=== PATIENT | male | born 1955 | race Caucasian/White ===

== ENCOUNTER 2023-01-29 10:24 | Emergency (ER) | payer MEDICARE, OTHER ==
[2023-01-29] MEDS ORDERED: ASCO500C18 GT (22:47)
[2023-01-29] MEDS ORDERED: POTA-88 GT (22:47)
[2023-01-29] MEDS ORDERED: LEVE500T83 GT (22:47)
[2023-01-29] MEDS ORDERED: ACET-2154 GT (22:47)
[2023-01-29] MEDS ORDERED: QUET25TA GT (22:47)
[2023-01-29] MEDS ORDERED: MIDO10TA GT (22:47)
[2023-01-29] MEDS ORDERED: MONT10TA33 GT (22:47)
[2023-01-29] MEDS ORDERED: VENL37.510 GT (22:47)
[2023-01-29] MEDS ORDERED: VERA100C4 GT (22:47)
[2023-01-29] MEDS ORDERED: LURA60TA3 GT (22:47)
[2023-01-29] MEDS ORDERED: FLUT16SP BNOSTRILS (22:47)
[2023-01-29] MEDS ORDERED: MULT-1045 GT (22:47)
[2023-01-29] MEDS ORDERED: NITR0.4T48 SL (22:47)
[2023-01-29] MEDS ORDERED: ALPR0.5T8 GT (22:47)
== END 2023-01-29 10:47 | disposition left against medical advice (07) ==
LOC: ER 10:28
DX: Z53.21 Procedure and treatment not carried out due to patient leaving prior to being seen by health care provider (principal)

== ENCOUNTER 2023-01-29 16:09 | Inpatient (IN) | payer MEDICARE, OTHER ==
[~2023-01-29] VITALS: Ht 188 cm; Wt 74.8 kg
[2023-01-29 16:47] LABS: BASOPHILS # (AUTO) 0.1 K/UL (0.0-0.2); DIFFERENTIAL COMMENT 0; EOSINOPHILS # (AUTO) 0.1 K/uL (0.0-0.7); EOSINOPHILS % (AUTO) 2.2 % (0.0-7.0); HEMATOCRIT 42.3 % (36.7-47.1); HEMOGLOBIN 14.1 g/dL (12.5-16.3); LYMPHOCYTES # (AUTO) 2.8 K/uL (0.8-4.8); LYMPHOCYTES % (AUTO) 43.9 % (20.5-51.5); MEAN CORPUSCULAR HEMOGLOBIN 29.3 uug (23.8-33.4); MEAN CORPUSCULAR HGB CONC 33 g/dL (32.5-36.3); MEAN CORPUSCULAR VOLUME 87.8 fL (73.0-96.2); MONOCYTES # (AUTO) 0.5 K/uL (0.1-1.30); MONOCYTES % (AUTO) 8.4 % (0.0-11.0); NEUTROPHILS # (AUTO) 2.8 K/uL (1.8-8.9); NEUTROPHILS % (AUTO) 43.5 % (38.5-71.5); PLATELET COUNT (AUTO) 181 K/uL (152-348); RED BLOOD CELL COUNT(AUTO) 4.81 MIL/uL (4.06-5.63); RED CELL DISTRIBUTION WIDTH 14.4 % (12.1-16.2); WHITE BLOOD COUNT (AUTO) 6.5 K/uL (3.6-10.2)
[2023-01-29 17:00] LABS: CALCIUM 9.8 mg/dL (8.5-10.1); CARBON DIOXIDE 26 mmol/L (21-32); CHLORIDE 99 mmol/L (98-107); CREATININE 1.3 mg/dL (0.6-1.3); GLUCOSE 88 mg/dL (74-106); POTASSIUM 4.3 mmol/L (3.5-5.1); SODIUM SERUM 130 mmol/L (136-145); UREA NITROGEN, BLOOD 19 mg/dL (7-18)
[2023-01-29 17:02] LABS: AMMONIA 12 umol/L (11-32)
[2023-01-29 17:05] LABS: ETHANOL < 3 MG/DL (0-10)
[2023-01-29 17:08] LABS: ACETAMINOPHEN < 2.0 ug/mL (10-30); ALANINE AMINOTRANSFERASE 29 U/L (16-63); ALBUMIN 3.6 g/dL (3.4-5.0); ALKALINE PHOSPHATASE 130 U/L (50-136); ASPARTATE AMINOTRANSFERASE 20 U/L (15-37); BILIRUBIN,DIRECT 0.1 mg/dL (0.0-0.2); BILIRUBIN,TOTAL 0.5 mg/dL (0.2-1.0); TOTAL PROTEIN, SERUM 6.9 g/dL (6.4-8.2)
[2023-01-29 17:13] LABS: THYROID STIMULATING HORMONE 2.372 mIU/mL (0.358-3.740)
[2023-01-29 21:45] LABS: *BILIRUBIN,URIN NEGATIVE (NEGATIVE); *BLOOD, URINE NEGATIVE (NEGATIVE); *CLARITY,URINE CLEAR (CLEAR); *COLOR,URINE YELLOW (YELLOW); *KETONES,URINE NEGATIVE (NEGATIVE); *PROTEIN,URINE NEGATIVE (NEGATIVE); *UROBILINOGEN,URINE 0.2 E.U./dl (NORMAL); LEUKOCYTE ESTERASE ,URINE NEGATIVE (NEGATIVE); NITRITE, URINE NEGATIVE (NEGATIVE); UGLUCOSE NEGATIVE (NEGATIVE)
[2023-01-29 21:56] LABS: *AMPHETAMINE, URINE NEGATIVE (NEGATIVE); *BARBITURATE, URINE NEGATIVE (NEGATIVE); *BENZODIAZEPINE, URINE NEGATIVE (NEGATIVE); *CANNABINOID, URINE NEGATIVE (NEGATIVE); *COCCAINE, URINE NEGATIVE (NEGATIVE); *OPIATE, URINE NEGATIVE (NEGATIVE); *PHENCYCLIDINE SCREEN,URINE NEGATIVE (NEGATIVE); FENTANYL, URINE NEGATIVE (NEGATIVE)
[2023-01-29] MEDS ORDERED: VERA100C4 GT (22:47)
[2023-01-29] MEDS ORDERED: POTA-88 GT (22:47)
[2023-01-29] MEDS ORDERED: NITR0.4T48 SL (22:47)
[2023-01-29] MEDS ORDERED: VENL37.510 GT (22:47)
[2023-01-29] MEDS ORDERED: ACET-2154 GT (22:47)
[2023-01-29] MEDS ORDERED: ASCO500C18 GT (22:47)
[2023-01-29] MEDS ORDERED: MIDO10TA GT (22:47)
[2023-01-29] MEDS ORDERED: QUET25TA GT (22:47)
[2023-01-29] MEDS ORDERED: MULT-1045 GT (22:47)
[2023-01-29] MEDS ORDERED: ALPR0.5T8 GT (22:47)
[2023-01-29] MEDS ORDERED: MONT10TA33 GT (22:47)
[2023-01-29] MEDS ORDERED: LEVE500T83 GT (22:47)
[2023-01-29] MEDS ORDERED: FLUT16SP BNOSTRILS (22:47)
[2023-01-29] MEDS ORDERED: LURA60TA3 GT (22:47)
[2023-01-29] MEDS ORDERED: MAG HYDROX/AL HYDROX/SIMETH 30 ML LIQUID UDC PO PRN (23:15)
[2023-01-29] MEDS ORDERED: ACETAMINOPHEN 325 MG TABLET PO PRN (23:15)
[2023-01-29] MEDS ORDERED: TEMAZEPAM 7.5 MG CAPSULE PO PRN (23:15)
[2023-01-29] MEDS ORDERED: MAGNESIUM HYDROXIDE 30 ML LIQUID UDC PO PRN (23:15)
[2023-01-29 23:20] VITALS: BP 146/76; TEMP 98.3; O2SAT 98
[2023-01-29] MEDS: LORAZEPAM 0.5 MG TABLET PO PRN (23:56)
[2023-01-30 08:00] VITALS: BP 129/85; TEMP 97.8
[2023-01-30] MEDS ORDERED: NITROGLYCERIN 0.4 MG/TAB BOTTLE SL PRN (11:30)
[2023-01-30] MEDS ORDERED: Medication Not On Formulary EA (Midodrine Hcl 10 MG) GT SCH (11:30)
[2023-01-30] MEDS ORDERED: levETIRAcetam 500 MG TABLET GT SCH (11:41)
[2023-01-30] MEDS ORDERED: MULTIVITAMINS,THERAPEUTIC TABLET GT SCH (11:43)
[2023-01-30] MEDS ORDERED: MIDODRINE HCL 5 MG TABLET PO PRN (13:00)
[2023-01-30] MEDS ORDERED: VERAPAMIL HCL 80 MG GT SCH (13:00)
[2023-01-30] MEDS ORDERED: MIDODRINE HCL 10 MG TABLET PO PRN (13:15)
[2023-01-30 16:00] VITALS: BP 117/92; TEMP 98
[2023-01-30] MEDS: POTASSIUM CHLORIDE 20 MEQ POWDER PACKET PO SCH (16:23)
[2023-01-30] MEDS: levETIRAcetam 500 MG TABLET PO SCH (16:23)
[2023-01-30] MEDS: VERAPAMIL 80 MG TABLET PO SCH (16:24)
[2023-01-30] MEDS ORDERED: POTASSIUM CHLORIDE GT SCH (17:00)
[2023-01-30] MEDS ORDERED: Medication Not On Formulary EA (Levetiracetam 500 MG) GT SCH (17:00)
[2023-01-30] MEDS: risperiDONE 1 MG TABLET PO SCH ×3 (18:00→20:23)
[2023-01-30] MEDS: LORAZEPAM 0.5 MG TABLET PO PRN (20:23)
[2023-01-31 00:07] VITALS: BP 119/52; TEMP 98.3; O2SAT 96
[2023-01-31 08:00] VITALS: BP 102/90; TEMP 98.1
[2023-01-31] MEDS ORDERED: MIDODRINE HCL 5 MG TABLET PO PRN (08:30)
[2023-01-31 08:35] LABS: ALBUMIN 3.2 g/dL (3.4-5.0); BILIRUBIN,TOTAL 0.6 mg/dL (0.2-1.0); CALCIUM 9.7 mg/dL (8.5-10.1); CREATININE 1.2 mg/dL (0.6-1.3); POTASSIUM 3.8 mmol/L (3.5-5.1); TOTAL PROTEIN, SERUM 6.2 g/dL (6.4-8.2)
[2023-01-31] MEDS: VERAPAMIL 80 MG TABLET PO SCH ×3 (09:00→17:12)
[2023-01-31] MEDS ORDERED: Medication Not On Formulary EA (Multivitamin (Multi-Vitamin Daily) 1 TAB) GT SCH (09:00)
[2023-01-31] MEDS: POTASSIUM CHLORIDE 20 MEQ POWDER PACKET PO SCH (09:02)
[2023-01-31] MEDS: ASCORBIC ACID 500 MG TABLET PO SCH (09:03)
[2023-01-31] MEDS: MULTIVITAMINS,THERAPEUTIC TABLET PO SCH (09:03)
[2023-01-31] MEDS: levETIRAcetam 500 MG TABLET PO SCH ×2 (09:03→17:13)
[2023-01-31] MEDS: risperiDONE 1 MG TABLET PO SCH ×3 (09:03→20:38)
[2023-01-31] MEDS: FLUTICASONE PROP NASAL SPRAY 16 GM BOTTLE NS SCH (09:04)
[2023-01-31 16:00] VITALS: BP 114/86; TEMP 97.4
[2023-01-31] MEDS: POTASSIUM CHLORIDE 10 MEQ TAB.PRT.SR PO SCH (17:13)
[2023-01-31] MEDS: MONTELUKAST SODIUM 10 MG TABLET PO SCH (17:14)
[2023-01-31] MEDS: ATORVASTATIN 20 MG TABLET PO SCH (20:38)
[2023-01-31 21:33] VITALS: BP 114/71; TEMP 98.2; O2SAT 98
[2023-02-01 08:00] VITALS: BP 125/86; TEMP 97.6
[2023-02-01] MEDS: ASCORBIC ACID 500 MG TABLET PO SCH (08:48)
[2023-02-01] MEDS: VERAPAMIL 80 MG TABLET PO SCH ×3 (08:48→17:31)
[2023-02-01] MEDS: POTASSIUM CHLORIDE 10 MEQ TAB.PRT.SR PO SCH ×2 (08:48→17:28)
[2023-02-01] MEDS: risperiDONE 1 MG TABLET PO SCH (08:49)
[2023-02-01] MEDS: MULTIVITAMINS,THERAPEUTIC TABLET PO SCH (08:49)
[2023-02-01] MEDS: levETIRAcetam 500 MG TABLET PO SCH ×2 (08:49→17:28)
[2023-02-01] MEDS: ASPIRIN EC 81 MG TABLET.DR PO SCH (08:49)
[2023-02-01] MEDS: FLUTICASONE PROP NASAL SPRAY 16 GM BOTTLE NS SCH (08:50)
[2023-02-01] MEDS: LORAZEPAM 0.5 MG TABLET PO PRN (13:46)
[2023-02-01] MEDS ORDERED: risperiDONE 1 MG TABLET PO SCH (17:00)
[2023-02-01] MEDS: risperiDONE 2 MG TABLET PO SCH ×2 (17:28→20:33)
[2023-02-01] MEDS: MONTELUKAST SODIUM 10 MG TABLET PO SCH (17:28)
[2023-02-01 19:13] VITALS: BP 122/76; TEMP 98
[2023-02-01] MEDS: ATORVASTATIN 20 MG TABLET PO SCH (20:33)
[2023-02-02 02:27] VITALS: BP 105/64; TEMP 97.9; O2SAT 99
[2023-02-02 08:00] VITALS: BP 117/83; TEMP 98.1; O2SAT 100
[2023-02-02] MEDS: ASPIRIN EC 81 MG TABLET.DR PO SCH (09:01)
[2023-02-02] MEDS: levETIRAcetam 500 MG TABLET PO SCH ×2 (09:01→16:40)
[2023-02-02] MEDS: ASCORBIC ACID 500 MG TABLET PO SCH (09:01)
[2023-02-02] MEDS: MULTIVITAMINS,THERAPEUTIC TABLET PO SCH (09:01)
[2023-02-02] MEDS: POTASSIUM CHLORIDE 10 MEQ TAB.PRT.SR PO SCH ×2 (09:01→16:40)
[2023-02-02] MEDS: risperiDONE 2 MG TABLET PO SCH ×3 (09:01→20:14)
[2023-02-02] MEDS: VERAPAMIL 80 MG TABLET PO SCH ×3 (09:02→16:41)
[2023-02-02] MEDS: FLUTICASONE PROP NASAL SPRAY 16 GM BOTTLE NS SCH (09:02)
[2023-02-02] MEDS: LORAZEPAM 0.5 MG TABLET PO PRN ×2 (13:38→21:14)
[2023-02-02] MEDS ORDERED: BENZTROPINE MESYLATE 1 MG TABLET PO SCH ×2 (14:15→17:00)
[2023-02-02 16:00] VITALS: BP 117/81; TEMP 97.5; O2SAT 99
[2023-02-02] MEDS: MONTELUKAST SODIUM 10 MG TABLET PO SCH (17:07)
[2023-02-02] MEDS: ATORVASTATIN 20 MG TABLET PO SCH (20:14)
[2023-02-02 20:29] VITALS: BP 110/70; TEMP 97.3; O2SAT 99
[2023-02-03 08:00] VITALS: BP 123/62; TEMP 97.2; O2SAT 99
[2023-02-03] MEDS: ASPIRIN EC 81 MG TABLET.DR PO SCH (08:44)
[2023-02-03] MEDS: MULTIVITAMINS,THERAPEUTIC TABLET PO SCH (08:44)
[2023-02-03] MEDS: FLUTICASONE PROP NASAL SPRAY 16 GM BOTTLE NS SCH (08:44)
[2023-02-03] MEDS: ASCORBIC ACID 500 MG TABLET PO SCH (08:44)
[2023-02-03] MEDS: risperiDONE 2 MG TABLET PO SCH ×3 (08:44→19:53)
[2023-02-03] MEDS: POTASSIUM CHLORIDE 10 MEQ TAB.PRT.SR PO SCH ×2 (08:44→16:48)
[2023-02-03] MEDS: VERAPAMIL 80 MG TABLET PO SCH ×3 (08:45→16:48)
[2023-02-03] MEDS: levETIRAcetam 500 MG TABLET PO SCH ×2 (08:48→16:48)
[2023-02-03] MEDS: LORAZEPAM 0.5 MG TABLET PO PRN ×2 (12:54→19:54)
[2023-02-03 16:08] VITALS: BP 117/81; TEMP 98.1
[2023-02-03] MEDS: MONTELUKAST SODIUM 10 MG TABLET PO SCH (17:25)
[2023-02-03] MEDS: ATORVASTATIN 20 MG TABLET PO SCH (19:54)
[2023-02-03 20:00] VITALS: BP 120/81; TEMP 98.1; O2SAT 98
[2023-02-04] MEDS ORDERED: CALCIUM CHLORIDE 1 GM/10 ML DISP.SYRIN IV ONE (10:12)
[2023-02-04] MEDS ORDERED: SODIUM BICARBONATE 8.4% 50 MEQ/50 ML DISP.SYRIN IV ONE (10:12)
[2023-02-04] MEDS ORDERED: EPINEPHRINE 1:10,000 1 MG/10 ML DISP.SYRIN IV ONE (10:12)
[2023-02-04] MEDS ORDERED: ROCURONIUM BROMIDE 50 MG/5 ML VIAL IV ONE (10:13)
== END 2023-02-04 08:28 | DRG 885 ==
LOC: ER 16:19 → GPS 22:40
PROVIDERS: ADMIT Psychiatry & Neurology Psychosomatic Medicine; ATTEND Internal Medicine
PROC: 5A12012 Performance of Cardiac Output, Single, Manual (ICD-10-PCS; principal; 2023-02-04)
DX: F25.0 Schizoaffective disorder, bipolar type (principal); N18.9 Chronic kidney disease, unspecified; I21.9 Acute myocardial infarction, unspecified; I26.99 Other pulmonary embolism without acute cor pulmonale; E87.1 Hypo-osmolality and hyponatremia; F03.94 Unspecified dementia, unspecified severity, with anxiety; G40.909 Epilepsy, unspecified, not intractable, without status epilepticus; J44.9 Chronic obstructive pulmonary disease, unspecified; E78.5 Hyperlipidemia, unspecified; I25.10 Atherosclerotic heart disease of native coronary artery without angina pectoris; I48.91 Unspecified atrial fibrillation; Z86.73 Personal history of transient ischemic attack (TIA), and cerebral infarction without residual deficits; Z62.810 Personal history of physical and sexual abuse in childhood; I12.9 Hypertensive chronic kidney disease with stage 1 through stage 4 chronic kidney disease, or unspecified chronic kidney disease; E86.1 Hypovolemia; M62.81 Muscle weakness (generalized); Z91.81 History of falling; Z88.1 Allergy status to other antibiotic agents; Z88.0 Allergy status to penicillin; Z79.899 Other long term (current) drug therapy; Z88.6 Allergy status to analgesic agent
CPT/HCPCS: 36415; 70450; 71045; 84443; 84484; 85025; 85730; 93005; G0480; J0171; J3490; J3535